=== PATIENT | female | born 1995 | race Caucasian/White ===

== ENCOUNTER → 2016-12-19 | Outpatient (CLI) | payer BC ==
[~2016-12-19] MED LIST: ALBUAER INH; MULT-506 PO; SPR28 PO
[2016-12-19 10:14] LABS: HEMATOCRIT 43.6 % (37-47); MEAN CELL VOLUME 84.3 fL (80-100); MEAN CORPUSCULAR HEMOGLOBIN 28.4 pg (25-34); MEAN CORPUSCULAR HGB CONC 33.7 g/dl (32-36); MEAN PLATELET VOLUME 10.5 fL (7.4-10.4); PLATELET COUNT 311 K/uL (130-400); RED BLOOD COUNT 5.17 M/uL (4.2-5.4); WHITE BLOOD COUNT 8.39 K/uL (4.8-10.8)
[2016-12-19 10:18] LABS: PREG INTERNAL NEGATIVE QC NEG CLEAR BACKGROUND; PREG INTERNAL POSITIVE QC POS CONTROL LINE
== END | disposition home or self-care (01) ==
LOC: C.LAB1850 09:12
PROVIDERS: ATTEND Obstetrics & Gynecology
DX: R10.2 Pelvic and perineal pain (principal); N92.6 Irregular menstruation, unspecified

== ENCOUNTER → 2017-11-11 | Outpatient (CLI) | payer BC ==
[~2017-11-11] MED LIST changes: +OPTIRAY 320 IV PRN
--- NOTE | 2017-11-11 17:19 | DIAGNOSTIC IMAGING REPORT ---
CT ANGIOGRAM OF THE CHEST CLINICAL HISTORY: Tachycardia, shortness of breath. COMPARISON STUDY: No previous studies for comparison. TECHNIQUE: Following the IV administration of 90 mL of Optiray-320, CT angiogram of the thorax was performed from the thoracic inlet to the lung bases utilizing the pulmonary embolus protocol. Images are reviewed in the axial, sagittal, and coronal planes. IV contrast was administered without complication. MIP imaging was performed. A dose lowering technique was utilized adhering to the principles of ALARA. CT DOSE: 599.36 mGy.cm FINDINGS: No pathologically enlarged axillary mediastinal or hilar lymph nodes were visualized. There was no evidence of thoracic aortic dilatation. There were no pulmonary artery filling defects to indicate acute pulmonary embolism. There are bilateral trace pleural effusions left greater than right. There is no evidence of focal pulmonary consolidation. IMPRESSION: 1. No CT evidence of acute pulmonary embolism 2. No evidence of focal pulmonary consolidation 3. Trace pleural effusions Electronically signed by: Rodney Strickland M.D. 11/11/2017 5:18 PM Dictated Date/Time: 11/11/2017 5:13 PM
== END | disposition home or self-care (01) ==
LOC: C.CTS 16:43
PROVIDERS: ATTEND Family Medicine
DX: R06.02 Shortness of breath (principal); R00.0 Tachycardia, unspecified; D68.59 Other primary thrombophilia; J90 Pleural effusion, not elsewhere classified